=== PATIENT | female | born 1950 | race Caucasian/White ===

== ENCOUNTER → 2017-11-07 07:44 | Outpatient (CLI) | payer OTHER, MEDICARE, SELFPAY ==
[2017-11-07 08:54] LABS: BUN Creatinine Ratio 34.3 (6-22); Blood Urea Nitrogen 24 mg/dL (7-17); Calcium 9.6 mg/dL (8.4-10.2); Carbon Dioxide 29 mmol/L (22-32); Chloride 97 mmol/L (98-107); Estimated Glomerular Filt Rate > 60.0 mL/min (>60); Glucose 225 mg/dL (80-110); HEMOLYSIS < 15 (0-50); Potassium 3.5 mmol/L (3.4-5.1); Sodium 139 mmol/L (137-145)
== END ==
PROVIDERS: PCP Physician Assistant Medical; Visit Provider Physician Assistant Medical
DX: J98.4 Other disorders of lung (principal)
CPT/HCPCS: 36415; 80048

== ENCOUNTER → 2017-11-10 09:32 | Outpatient (CLI) | payer OTHER, MEDICARE, SELFPAY ==
--- NOTE | 2017-11-10 | DI.CT.S_ITS ---
PROCEDURE: CT CHEST W CON INDICATIONS: Pulmonary nodule TECHNIQUE: After the administration of intravenous contrast, 5 mm thick sections acquired from the pulmonary apices to the posterior costophrenic angles. 7 mm thick coronal and sagittal MIP reformats were acquired. For radiation dose reduction, the following was used: automated exposure control, adjustment of mA and/or kV according to patient size. COMPARISON: [facility], CT, PE STUDY (CTA CHEST), 04/08/2017, 13:31. FINDINGS: Image quality: Excellent. Lungs and pleura: No acute air space opacities. 3 mm diameter nodule within the right lower lobe anteriorly adjacent to the major fissure is unchanged. The 6 mm diameter subpleural nodule within the left lower lobe anterolaterally is unchanged. Mild bibasilar scarring is unchanged. Scar within the right middle lobe and lingula is unchanged. No pleural effusions or pneumothorax. Central and peripheral airways are patent and normal in caliber. Mediastinum: Heart size is normal. No pericardial effusion. No mediastinal or hilar adenopathy by size criteria. Thoracic aorta and central pulmonary arteries are normal in size. Esophagus is normal in caliber. No hiatal hernia. Bones and chest wall: No suspicious bony lesions. No vertebral body compression fractures. No axillary or supraclavicular adenopathy by size criteria. Thyroid gland is within normal limits. Abdomen: Visualized portions of the upper abdomen demonstrate diffusely decreased hepatic density, and are otherwise within normal limits. IMPRESSION: 1. No change in bilateral pulmonary nodules. In a high risk patient, further followup imaging in 6 months and 18 months is recommended per the Fleischner criteria. 2. Hepatic steatosis. Dictated by: Katya Wills M.D. on 11/10/2017 at 11:44 Approved by: Katya Wills M.D. on 11/10/2017 at 12:02
== END ==
PROVIDERS: PCP Physician Assistant Medical; Visit Provider Physician Assistant Medical
DX: R91.8 Other nonspecific abnormal finding of lung field (principal); K76.0 Fatty (change of) liver, not elsewhere classified
CPT/HCPCS: 71260; Q9967

== ENCOUNTER → 2018-02-18 11:14 | Outpatient (CLI) | payer MEDICARE, OTHER, SELFPAY ==
--- NOTE | 2018-02-18 | DI.MG.S_ITS ---
BILATERAL DIGITAL SCREENING MAMMOGRAM 3D/2D WITH CAD: 02/18/2018 CLINICAL: Routine screening. Family history of breast cancer. Comparison is made to exams dated: 02/11/2017 mammogram, 02/09/2016 mammogram, and 02/03/2015 mammogram - [facility]. There are scattered fibroglandular elements in both breasts. Current study was also evaluated with a Computer Aided Detection (CAD) system. There is a linear scar marker projecting over the skin of the upper left breast with underlying scarring of the breast parenchyma. There are benign calcifications in the left breast. No significant masses, calcifications, or other findings are seen in either breast. There has been no significant interval change. IMPRESSION: BENIGN There is no mammographic evidence of malignancy. A 1 year screening mammogram is recommended. This exam was interpreted at Station ID: [id number]. NOTE: For mammograms, a report in lay terms will be sent to the patient. Approximately 15% of breast malignancies will not be visualized mammographically. In the management of a palpable breast mass, a negative mammogram must not discourage biopsy of a clinically suspicious lesion. Electronically Signed By: Nate Huerta M.D. ecl/:02/19/2018 06:49:18 letter sent: Normal Exam ACR BI-RADS Category 2: Benign Finding(s) 3342F
== END ==
PROVIDERS: PCP Physician Assistant Medical; Visit Provider Physician Assistant Medical
DX: Z12.31 Encounter for screening mammogram for malignant neoplasm of breast (principal); Z80.3 Family history of malignant neoplasm of breast
CPT/HCPCS: 77063; 77067

== ENCOUNTER → 2019-04-12 13:36 | Outpatient (CLI) | payer MEDICARE, OTHER, SELFPAY ==
--- NOTE | 2019-04-12 | DI.MG.S_ITS ---
BILATERAL DIGITAL SCREENING MAMMOGRAM 3D/2D WITH CAD: 04/12/2019 CLINICAL: Routine screening. Family history of breast cancer. Comparison is made to exams dated: 02/18/2018 mammogram, 02/11/2017 mammogram, 02/09/2016 mammogram, and 02/03/2015 mammogram - [facility]. There are scattered fibroglandular elements in both breasts. Current study was also evaluated with a Computer Aided Detection (CAD) system. There are benign post operative findings in the left breast. There are mole markers on the left breast. No significant masses, calcifications, or other findings are seen in either breast. There has been no significant interval change. IMPRESSION: There is no mammographic evidence of malignancy. A 1 year screening mammogram is recommended. This exam was interpreted at Station ID: [id number]. NOTE: For mammograms, a report in lay terms will be sent to the patient. Approximately 15% of breast malignancies will not be visualized mammographically. In the management of a palpable breast mass, a negative mammogram must not discourage biopsy of a clinically suspicious lesion. Electronically Signed By: Nate perez/stevie:04/12/2019 21:21:34 letter sent: Normal Exam ACR BI-RADS Category 2: Benign Finding(s) 3342F
== END ==
PROVIDERS: PCP Physician Assistant Medical; Visit Provider Physician Assistant Medical
DX: Z12.31 Encounter for screening mammogram for malignant neoplasm of breast (principal); Z80.3 Family history of malignant neoplasm of breast
CPT/HCPCS: 77063; 77067

== ENCOUNTER → 2019-04-14 13:31 | Outpatient (CLI) | payer MEDICARE, OTHER, SELFPAY | PROVIDERS: PCP Physician Assistant Medical; Visit Provider Physician Assistant Medical | DX: E07.9 Disorder of thyroid, unspecified (principal); Z78.0 Asymptomatic menopausal state; Z90.722 Acquired absence of ovaries, bilateral; E11.9 Type 2 diabetes mellitus without complications | CPT/HCPCS: 77080 ==

== ENCOUNTER → 2020-04-13 10:42 | Outpatient (CLI) | payer MEDICARE, OTHER, SELFPAY ==
--- NOTE | 2020-04-13 | DI.MG.S_ITS ---
BILATERAL DIGITAL SCREENING MAMMOGRAM 3D/2D WITH CAD: 04/13/2020 CLINICAL: Routine screening. Family history of breast cancer. Comparison is made to exams dated: 04/12/2019 mammogram, 02/18/2018 mammogram, and 02/11/2017 mammogram - [facility]. There are scattered fibroglandular elements in both breasts. Current study was also evaluated with a Computer Aided Detection (CAD) system. There are benign calcifications in both breasts. There also are benign post operative findings in the left breast. There are mole markers on the left breast. No significant masses, calcifications, or other findings are seen in either breast. There has been no significant interval change. IMPRESSION: BENIGN There is no mammographic evidence of malignancy. A 1 year screening mammogram is recommended. This exam was interpreted at Station ID: [id number]. NOTE: For mammograms, a report in lay terms will be sent to the patient. Approximately 15% of breast malignancies will not be visualized mammographically. In the management of a palpable breast mass, a negative mammogram must not discourage biopsy of a clinically suspicious lesion. Electronically Signed By: Peewee llanos/stevie:04/13/2020 12:26:19 letter sent: Normal Exam ACR BI-RADS Category 2: Benign Finding(s) 3342F
== END ==
PROVIDERS: PCP Physician Assistant Medical; Referring Provider Physician Assistant Medical; Visit Provider Physician Assistant Medical
DX: Z12.31 Encounter for screening mammogram for malignant neoplasm of breast (principal); Z80.3 Family history of malignant neoplasm of breast
CPT/HCPCS: 77063; 77067

== ENCOUNTER → 2021-04-25 08:21 | Outpatient (CLI) | payer MEDICARE, OTHER, SELFPAY ==
--- NOTE | 2021-04-25 | DI.MG.S_ITS ---
BILATERAL DIGITAL SCREENING MAMMOGRAM 3D/2D WITH CAD: 04/25/2021 CLINICAL: Routine screening. Family history of breast cancer. Comparison is made to exams dated: 04/13/2020 mammogram, 04/12/2019 mammogram, and 02/18/2018 mammogram - [facility]. There are scattered fibroglandular elements in both breasts. Current study was also evaluated with a Computer Aided Detection (CAD) system. There is a possible developing focal asymmetry in the left breast at 8 o'clock anterior depth. No other significant masses, calcifications, or other findings are seen in either breast. IMPRESSION: INCOMPLETE: NEEDS ADDITIONAL IMAGING EVALUATION The possible developing focal asymmetry in the left breast is indeterminate. Additional views with possible ultrasound are recommended. This exam was interpreted at Station ID: [id number]. NOTE: For mammograms, a report in lay terms will be sent to the patient. Approximately 15% of breast malignancies will not be visualized mammographically. In the management of a palpable breast mass, a negative mammogram must not discourage biopsy of a clinically suspicious lesion. Electronically Signed By: Wilmer Paz M.D., jr/stevie:04/25/2021 11:50:29 letter sent: Additional Imaging Needed ACR BI-RADS Category 0: Incomplete 3340F
== END ==
PROVIDERS: PCP Physician Assistant Medical; Referring Provider Physician Assistant Medical; Visit Provider Physician Assistant Medical
DX: Z12.31 Encounter for screening mammogram for malignant neoplasm of breast (principal); Z80.3 Family history of malignant neoplasm of breast
CPT/HCPCS: 77063; 77067

== ENCOUNTER → 2021-05-23 13:58 | Outpatient (CLI) | payer MEDICARE, OTHER, SELFPAY ==
--- NOTE | 2021-05-23 14:01 | DI.MG.S_ITS ---
UNILATERAL LEFT DIGITAL DIAGNOSTIC MAMMOGRAM 3D/2D WITH ADDITIONAL VIEWS: 05/23/2021 CLINICAL: Additional evaluation requested from prior study. Comparison is made to exams dated: 04/25/2021 mammogram, 04/13/2020 mammogram, and 04/12/2019 mammogram - [facility]. There are scattered fibroglandular elements in left breast. There is a possible developing focal asymmetry in the left breast at 8 o'clock anterior depth. No other significant masses or calcifications are seen in the breast. IMPRESSION: INCOMPLETE: NEEDS ADDITIONAL IMAGING EVALUATION The possible developing focal asymmetry in the left breast is indeterminate. An ultrasound is recommended. This exam was interpreted at Station ID: [id number]. NOTE: For mammograms, a report in lay terms will be sent to the patient. Approximately 15% of breast malignancies will not be visualized mammographically. In the management of a palpable breast mass, a negative mammogram must not discourage biopsy of a clinically suspicious lesion. Electronically Signed By: Wilmer Paz M.D., jr/stevie:05/23/2021 15:40:08 ACR BI-RADS Category 0: Incomplete 3340F
--- NOTE | 2021-05-23 14:02 | DI.US.S_ITS ---
LIMITED ULTRASOUND OF LEFT BREAST: 05/23/2021 CLINICAL: Patient returns today to evaluate a focal asymmetry in the left breast. Comparison is made to exams dated: 05/23/2021 mammogram, 04/25/2021 mammogram, 04/13/2020 mammogram, 04/12/2019 mammogram, 02/18/2018 mammogram, and 02/11/2017 mammogram - [facility]. Color flow and real-time ultrasound of the left breast 6-8 o'clock region were performed. Lassiter scale images of the real-time examination were reviewed. There is a possible dilated duct in the left breast at 7 o'clock anterior depth. This dilated duct is of mixed echogenicity with no posterior acoustic shadowing or enhancement. This correlates with mammography findings. There are related calcifications. Color flow imaging demonstrates that there is no increase in vascularity. IMPRESSION: PROBABLY BENIGN The possible dilated duct in the left breast is probably benign. Follow-up mammogram and ultrasound in 6 months is recommended. A follow-up mammogram and an ultrasound in 6 months is recommended to demonstrate stability. This exam was interpreted at Station ID: [id number]. Electronically Signed By: Wilmer Paz M.D., jr/stevie:05/23/2021 15:42:34 letter sent: Followup Recommended Ultrasound BI-RADS: 3 Probably benign
== END ==
PROVIDERS: PCP Physician Assistant Medical; Referring Provider Physician Assistant Medical; Visit Provider Physician Assistant Medical
DX: R92.8 Other abnormal and inconclusive findings on diagnostic imaging of breast (principal)
CPT/HCPCS: 76642; 77065; G0279

== ENCOUNTER → 2021-11-21 09:06 | Outpatient (CLI) | payer MEDICARE, OTHER, SELFPAY ==
--- NOTE | 2021-11-21 | DI.US.S_ITS ---
LIMITED ULTRASOUND OF LEFT BREAST: 11/21/2021 CLINICAL: 6 month follow-up of dilated duct. Comparison is made to exams dated: 11/21/2021 mammogram, 05/23/2021 ultrasound, 05/23/2021 mammogram, 04/25/2021 mammogram, 04/13/2020 mammogram, and 04/12/2019 mammogram - [facility]. Color flow and real-time ultrasound of the left breast 8 o'clock region were performed. Lassiter scale images of the real-time examination were reviewed. There is a dilated duct in the left breast at 8 o'clock anterior depth 3 cm from the nipple. This dilated duct is of mixed echogenicity with no posterior acoustic shadowing or enhancement. This abnormality is not significantly changed and correlates with mammography findings. Color flow imaging demonstrates that there is no increase in vascularity. IMPRESSION: PROBABLY BENIGN The dilated duct in the left breast is probably benign. A follow-up mammogram and an ultrasound in 6 months is recommended to demonstrate stability. This exam was interpreted at Station ID: [id number]. Electronically Signed By: Joe prado/stevie:11/21/2021 10:33:37 letter sent: Followup Recommended Ultrasound BI-RADS: 3 Probably benign
--- NOTE | 2021-11-21 | DI.MG.S_ITS ---
UNILATERAL LEFT DIGITAL DIAGNOSTIC MAMMOGRAM 3D/2D: 11/21/2021 CLINICAL: Short term follow up for the left breast. Comparison is made to exams dated: 05/23/2021 ultrasound, 05/23/2021 mammogram, 04/25/2021 mammogram, 04/13/2020 mammogram, 04/12/2019 mammogram, and 02/18/2018 mammogram - [facility]. There are scattered fibroglandular elements in left breast. There is a focal asymmetry in the left breast at 8 o'clock anterior depth. This is not significantly changed. No other significant masses or calcifications are seen in the breast. IMPRESSION: INCOMPLETE: NEEDS ADDITIONAL IMAGING EVALUATION The focal asymmetry in the left breast is indeterminate. An ultrasound is recommended. This exam was interpreted at Station ID: [id number]. NOTE: For mammograms, a report in lay terms will be sent to the patient. Approximately 15% of breast malignancies will not be visualized mammographically. In the management of a palpable breast mass, a negative mammogram must not discourage biopsy of a clinically suspicious lesion. Electronically Signed By: Joe prado/stevie:11/21/2021 10:31:49 ACR BI-RADS Category 0: Incomplete 3340F
== END ==
PROVIDERS: PCP Physician Assistant Medical; Referring Provider Physician Assistant Medical; Visit Provider Physician Assistant Medical
DX: R92.8 Other abnormal and inconclusive findings on diagnostic imaging of breast (principal); N64.89 Other specified disorders of breast; N60.42 Mammary duct ectasia of left breast
CPT/HCPCS: 76642; 77065; G0279

== ENCOUNTER → 2022-07-29 11:46 | Outpatient (CLI) | payer MEDICARE, OTHER, SELFPAY ==
--- NOTE | 2022-07-29 | DI.MG.S_ITS ---
BILATERAL DIGITAL DIAGNOSTIC MAMMOGRAM 3D/2D SHORT-TERM FOLLOW-UP: 07/29/2022 CLINICAL: Short term follow up of the left breast, due for bilateral imaging. Comparison is made to exams dated: 05/23/2021 mammogram, 04/25/2021 mammogram, 11/21/2021 ultrasound, 04/13/2020 mammogram, 05/23/2021 ultrasound, and 11/21/2021 mammogram - [facility]. There are scattered areas of fibroglandular density in both breasts (category b / 25%-50% glandular tissue). There is a focal asymmetry in the left breast at 8 o'clock anterior depth. This is not significantly changed. No other significant masses, calcifications, or other findings are seen in either breast. IMPRESSION: INCOMPLETE: NEEDS ADDITIONAL IMAGING EVALUATION The focal asymmetry in the left breast is indeterminate. An ultrasound is recommended. Based on the Tyrer Cuzick model (a risk assessment model) the patient's lifetime risk is 10.2% and her 10 year risk is 6.5%. According to the ACR, ACS, and NCCN guidelines, an annual breast MRI exam along with mammogram is recommended if the patient's lifetime risk is 20% or greater. This exam was interpreted at Station ID: [id number]. NOTE: For mammograms, a report in lay terms will be sent to the patient. Approximately 15% of breast malignancies will not be visualized mammographically. In the management of a palpable breast mass, a negative mammogram must not discourage biopsy of a clinically suspicious lesion. Electronically Signed By: Joe prado/stevie:07/29/2022 14:59:36 ACR BI-RADS Category 0: Incomplete 3340F
--- NOTE | 2022-07-29 | DI.US.S_ITS ---
LIMITED ULTRASOUND OF LEFT BREAST AND AXILLA: 07/29/2022 CLINICAL: Patient returns today to evaluate a focal asymmetry in the left breast. Comparison is made to exams dated: 07/29/2022 mammogram, 11/21/2021 mammogram, 11/21/2021 ultrasound, 05/23/2021 ultrasound, 05/23/2021 mammogram, and 04/25/2021 mammogram - [facility]. Color flow ultrasound of the left breast 8 o'clock, and axilla regions was performed. Lassiter scale images of the real-time examination were reviewed. There is a dilated duct in the left breast at 8 o'clock anterior depth 3 cm from the nipple. This dilated duct is of mixed echogenicity with no posterior acoustic shadowing or enhancement. This abnormality is not significantly changed and correlates with mammography findings. Color flow imaging demonstrates that there is no increase in vascularity. No significant abnormalities were seen sonographically in the left axilla. IMPRESSION: PROBABLY BENIGN The dilated duct in the left breast is probably benign. A follow-up diagnostic mammogram and left breast ultrasound in 12 months is recommended. This exam was interpreted at Station ID: [id number]. Electronically Signed By: Joe Dillard M.D. ar/:07/29/2022 15:04:06 letter sent: Followup Recommended Ultrasound BI-RADS: 3 Probably benign
== END ==
PROVIDERS: PCP Physician Assistant Medical; Referring Provider Physician Assistant Medical; Visit Provider Physician Assistant Medical
DX: R92.8 Other abnormal and inconclusive findings on diagnostic imaging of breast (principal); N60.42 Mammary duct ectasia of left breast
CPT/HCPCS: 76642; 77066; G0279

== ENCOUNTER → 2023-01-31 | Outpatient (CLI) | payer MEDICARE, OTHER, SELFPAY ==
--- NOTE | 2023-01-31 | DI.RAD.S_ITS ---
Bone Density Report Name: BE ESCALANTE Age: 72 Sex: Female Ethnicity: White Date of : 1950 Indication: postmenopausal; screening for osteoporosis; Referring Provider: DORINA GUARDADO Study: Bone densitometry was performed. Exam Date: January 31, 2023 Accession number: [id number] Bone Density: Region BMD T-score Z-score Classification AP Spine(L1-L4) 1.010 -0.3 1.8 Normal Femoral Neck (Left) 0.885 0.3 2.2 Normal Total Hip (Left) 1.019 0.6 2.2 Normal Femoral Neck (Right) 0.911 0.6 2.4 Normal Total Hip (Right) 1.005 0.5 2.1 Normal Total Hip Mean 1.012 0.6 2.2 Normal World Health Organization criteria for BMD impression classify patients as: Normal (T-score at or above -1.0), Osteopenia (T-score between -1.0 and -2.5), or Osteoporosis (T-score at or below -2.5). 10-year Fracture Risk: FRAX not reported because: All T-scores for Spine Total, Hip Total, Femoral Neck at or above -1.0 Previous Exams: -- Region Exam Age BMD T-score BMD Change BMD Change Date g/cm2 vs Baseline vs Previous -- AP Spine (L1-L4) 01/31/2023 72 1.010 -0.3 -0.054 (-5.0%)# -0.054 (-5.0%)# 04/14/2019 68 1.064 0.2 Total Hip(Left) 01/31/2023 72 1.019 0.6 0.020 (2.0%)# 0.020 (2.0%)# 04/14/2019 68 0.999 0.5 Total Hip(Right) 01/31/2023 72 1.005 0.5 0.020 (2.0%)# 0.020 (2.0%)# 04/14/2019 68 0.986 0.4 -- *Denotes significance at 95% confidence level, LSC for AP Spine = 0.022 g/cm2, LSC for Total Hip = 0.027 g/cm2 # Denotes dissimilar scan types or analysis methods Impression: The patient has normal bone mass. No significant bone loss was observed. Discussion: BONE DENSITY IS ABOVE THE MINIMUM DESIRABLE LEVEL AT ALL SKELETAL SITES TESTED. This patient's bone mineral density is above the minimum desirable level (T-score -1.0 or better) at all sites measured. The patient should follow a healthful lifestyle (good nutrition with adequate calcium and vitamin D, and appropriate weight-bearing exercise). Follow-Up: Consider repeating this study in 5 years or sooner if there is some new clinical indication. Reported by: LYNSEY AGUILAR M.D on 01/31/2023 11:52:00 AM.
== END ==
PROVIDERS: PCP Physician Assistant Medical; Referring Provider Physician Assistant Medical; Visit Provider Physician Assistant Medical
DX: Z78.0 Asymptomatic menopausal state (principal); Z13.820 Encounter for screening for osteoporosis; Z92.23 Personal history of estrogen therapy; Z90.710 Acquired absence of both cervix and uterus
CPT/HCPCS: 77080

== ENCOUNTER → 2023-09-02 09:58 | Outpatient (CLI) | payer MEDICARE, OTHER, SELFPAY ==
--- NOTE | 2023-09-02 | DI.MG.S_ITS ---
BILATERAL DIGITAL DIAGNOSTIC MAMMOGRAM 3D/2D SHORT-TERM FOLLOW-UP: 09/02/2023 CLINICAL: Patient returns for a 12 month follow up of the left breast, due for bilateral exam. Comparison is made to exams dated: 07/29/2022 mammogram, 11/21/2021 mammogram, 05/23/2021 mammogram, 04/25/2021 mammogram, 07/29/2022 ultrasound, and 11/21/2021 ultrasound - [facility]. There are scattered areas of fibroglandular density in both breasts (category b / 25%-50% glandular tissue). There is a stable focal asymmetry in the left breast at 8 o'clock anterior depth. No other significant masses, calcifications, or other findings are seen in either breast. IMPRESSION: INCOMPLETE: NEEDS ADDITIONAL IMAGING EVALUATION The stable focal asymmetry in the left breast is indeterminate. An ultrasound is recommended. Based on the Tyrer Cuzick model (a risk assessment model) the patient's lifetime risk is 9.7% and her 10 year risk is 6.7%. According to the ACR, ACS, and NCCN guidelines, an annual breast MRI exam along with mammogram is recommended if the patient's lifetime risk is 20% or greater. This exam was interpreted at Station ID: [id number]. NOTE: For mammograms, a report in lay terms will be sent to the patient. Approximately 15% of breast malignancies will not be visualized mammographically. In the management of a palpable breast mass, a negative mammogram must not discourage biopsy of a clinically suspicious lesion. Electronically Signed By: Joe prado/stevie:09/02/2023 16:28:19 ACR BI-RADS Category 0: Incomplete 3340F
--- NOTE | 2023-09-02 10:00 | DI.US.S_ITS ---
LIMITED ULTRASOUND OF LEFT BREAST: 09/02/2023 CLINICAL: Late 6 month follow-up of ducts. Comparison is made to exams dated: 09/02/2023 mammogram, 07/29/2022 ultrasound, 11/21/2021 ultrasound, 11/21/2021 mammogram, 05/23/2021 ultrasound, and 05/23/2021 mammogram - [facility]. Color flow ultrasound of the left breast 8 o'clock region was performed. Lassiter scale images of the real-time examination were reviewed. There is a stable benign dilated duct in the left breast at 8 o'clock anterior depth 3 cm from the nipple. This dilated duct is of mixed echogenicity with no posterior acoustic shadowing or enhancement. This correlates with mammography findings. Color flow imaging demonstrates that there is no increase in vascularity. This finding has not significantly changed when compared to multiple prior exams dating back to 05/23/2021, and is therefore considered benign. IMPRESSION: BENIGN There is no sonographic evidence of malignancy. The stable dilated duct in the left breast is benign. Return to annual mammogram screening schedule is recommended. This exam was interpreted at Station ID: [id number]. Electronically Signed By: Joe prado/stevie:09/02/2023 16:30:02 letter sent: Normal Exam Ultrasound BI-RADS: 2 Benign
== END ==
PROVIDERS: PCP Physician Assistant Medical; Referring Provider Physician Assistant Medical; Visit Provider Physician Assistant Medical
DX: R92.8 Other abnormal and inconclusive findings on diagnostic imaging of breast (principal); R92.323 Mammographic fibroglandular density, bilateral breasts; N60.42 Mammary duct ectasia of left breast
CPT/HCPCS: 76642; 77066; G0279

== ENCOUNTER → 2024-09-02 08:20 | Outpatient (CLI) | payer MEDICARE, OTHER, SELFPAY ==
--- NOTE | 2024-09-02 08:21 | DI.MG.S_ITS ---
MM screening mammo BI: 09/02/2024. BI-RADS: 2 CLINICAL: 73-year old female for bilateral screening mammogram. Tyrer-Cuzick lifetime risk of 8.0%. Current reported family history of breast cancer: mother and maternal aunt's daughter. The patient had a prior left breast biopsy. PRIOR EXAMS 09/02/2023, 07/29/2022, 11/21/2021, 05/23/2021, 04/25/2021, 04/13/2020, 04/12/2019, 02/18/2018, 02/11/2017, 02/09/2016, 02/03/2015. MAMMOGRAPHY TECHNIQUE: 2D and 3D (tomosynthesis) digital mammographic views obtained, with additional images as needed for full coverage. Current study was also evaluated with a Computer Aided Detection (CAD) system. DENSITY C. The breasts are heterogeneously dense, which may obscure small masses. MAMMOGRAPHY FINDINGS Right: Benign-appearing calcification noted on the right. There are no suspicious masses, calcifications, or other findings in the breast. No significant change from comparison. Left: Benign-appearing calcification and post-surgical changes noted on the left. There are no suspicious masses, calcifications, or other findings in the breast. No significant change from comparison. IMPRESSION: * No evidence of malignancy with benign findings. RECOMMENDATIONS Bilateral * Annual screening mammography. OVERALL ASSESSMENT CATEGORY BI-RADS-2: Benign. The [employer] recommends annual screening mammography beginning at age 40 for women with average risk of breast cancer. ELECTRONICALLY SIGNED: Josefa Fine M.D. on 09/02/2024 at 12:27:40 PM PT Interpreting Station ID: [id number]
== END ==
PROVIDERS: PCP Physician Assistant Medical; Referring Provider Physician Assistant Medical; Visit Provider Physician Assistant Medical
DX: Z12.31 Encounter for screening mammogram for malignant neoplasm of breast (principal); Z80.3 Family history of malignant neoplasm of breast; R92.333 Mammographic heterogeneous density, bilateral breasts
CPT/HCPCS: 77063; 77067